=== PATIENT | male | born 1940 | race Caucasian/White ===

== ENCOUNTER → 2018-11-04 | Outpatient (CLI) | payer MEDICARE, OTHER ==
[2018-11-04 12:05] LABS: African American GFR (CKD) >90 (>60 ml/min/1.73 sqM); Blood Urea Nitrogen 18 mg/dL (9-20)
--- NOTE | 2018-11-04 12:59 | CT ---
EXAMINATION TYPE: CT chest w con DATE OF EXAM: 11/04/2018 COMPARISON: Chest CT February 23, 2016 HISTORY: Pleural Effusion CT DLP: 285.7 mGycm. Automated Exposure Control for Dose Reduction was Utilized. TECHNIQUE: CT scan of the thorax is performed following with IV Contrast, patient injected with 100 mL of Isovue 300. FINDINGS: LUNGS: Moderate to advanced underlying emphysematous changes redemonstrated. There is persistent prom inent left pericardial fat pad. There are areas of fat density pleural thickening bilaterally with so me pleural calcifications in the right lung redemonstrated. There is persistent moderate to severe ri ght apical scarring extending anteriorly inferiorly. There is worsening [id number] diffuse pare nchymal scarring bilaterally. Some diffuse groundglass opacity is also present. No suspicious focal c onsolidation. No pleural effusion or pneumothorax. MEDIASTINUM: There are no greater than 1 cm hilar or mediastinal lymph nodes. No cardiomegaly or pe ricardial effusion is seen. OTHER: Intraluminal gallstones. Some cortical thinning both kidneys with simple appearing thin-walled cyst left kidney. 2 mm nonobstructing calculus upper pole right kidney coronal image 59. S-shaped sc oliosis. IMPRESSION: Moderate to advanced emphysematous change with moderate scattered parenchymal fibrosis mo re prominent from prior. Background diffuse alveolar edema though present on current study. No pleura l effusion is seen.
== END | disposition home or self-care (01) ==
LOC: RADCTMAIN 10:53
PROVIDERS: ATTEND Family Medicine
DX: J43.9 Emphysema, unspecified (principal); J84.10 Pulmonary fibrosis, unspecified; R60.0 Localized edema
CPT/HCPCS: 82565; 84520; 71260; 36415; Q9967